=== PATIENT | female | born 1960 | race Caucasian/White ===

== ENCOUNTER 2020-04-20 12:58 | Outpatient (CLI) | payer OTHER | END 2020-04-20 23:59 | disposition home or self-care (01) | LOC: RAD 12:58 | PROVIDERS: ATTEND Surgery | DX: K21.9 Gastro-esophageal reflux disease without esophagitis (principal); R13.14 Dysphagia, pharyngoesophageal phase; K44.9 Diaphragmatic hernia without obstruction or gangrene; E11.9 Type 2 diabetes mellitus without complications | CPT/HCPCS: 74230 ==

== ENCOUNTER 2020-05-17 07:44 | Inpatient (IN) | payer OTHER ==
[2020-05-10 15:45] LABS: BASOPHILS % (AUTO) 0.9 % (0-1); EOSINOPHILS # (AUTO) 0.1 X10'3 (0-0.9); EOSINOPHILS % (AUTO) 2.7 % (0-6); LYMPHOCYTES # (AUTO) 1.6 X10'3 (1.1-4.8); LYMPHOCYTES % (AUTO) 32.9 % (21-51); MEAN CORPUSCULAR HEMOGLOBIN 30.7 PG (27.0-31.0); MEAN CORPUSCULAR HGB CONC 33.5 g/dL (33.0-36.5); MEAN CORPUSCULAR VOLUME 91.5 FL (78-98); MEAN PLATELET VOLUME 9.1 FL (7.4-10.4); MONOCYTES # (AUTO) 0.4 X10'3 (0-0.9); MONOCYTES % (AUTO) 7.8 % (2-12); NEUTROPHILS # (AUTO) 2.7 X10'3 (1.8-7.7); NEUTROPHILS % (AUTO) 55.7 % (42-75); PRE OP HEMATOCRIT 42.3 % (35.0-45.0); PRE OP HEMOGLOBIN 14.2 g/dL (12.0-16.0); PRE OP PLATELET COUNT 222 X10'3 (140-440); RED BLOOD COUNT 4.63 X10'6 (4.20-5.60); RED CELL DISTRIBUTION WIDTH 14.6 % (11.5-14.5)
[2020-05-10 16:11] LABS: ALBUMIN 3.6 G/DL (3.4-5.0); ALBUMIN/GLOBULIN RATIO 0.9 (1.1-1.5); ALKALINE PHOSPHATASE 57 IU/L (46-116); BLOOD UREA NITROGEN 17 MG/DL (7-18); CALCIUM 9.7 MG/DL (8.5-10.1); CHLORIDE 106 MMOL/L (99-107); CREATININE 0.85 MG/DL (0.40-0.90); PRE OP ALT 20 U/L (30-65); PRE OP ANION GAP 6 (8-16); PRE OP AST 14 U/L (10-37); PRE OP BILIRUB, TOTAL 0.3 MG/DL (0.0-1.0); PRE OP GLUCOSE 116 MG/DL (70-104); PRE OP POTASSIUM 4.1 MMOL/L (3.4-5.1); PRE OP SODIUM 141 MMOL/L (135-145); TOTAL CARBON DIOXIDE 29.2 MMOL/L (24-32); TOTAL PROTEIN 7.6 G/DL (6.4-8.2); eGFR 69 ML/MIN
[2020-05-17] VITALS (26 sets, daily range): BP systolic 117–177; BP diastolic 76–98
[~2020-05-17] VITALS: Ht 160 cm; Wt 71.7 kg
[~2020-05-17 07:44] MED LIST: ALPR0.5T9 PO; BUPIVAcaine/PF 2.5 mg/ml (0.25%) 30ml vial ONE; BUSP-28 PO; CETI10TA14 PO; CHOL10002 PO; ESCI10TA61 PO; ESTR0.5T28 PO; GLIP2.5T3 PO; LIDOcaine 1% 30ml preserv. free vial ONE; METF-438 PO; PANT40TA4 PO; PROG200C11 PO; PROM25TA14 PO; ROSU5TAB12 PO; ceFAZolin 2gm in dextrose, iso 50 ML IV ONE; famotidine 20mg tablet PO ONE; meperidine/PF 25mg/ml syringe IV PRN; morphine 2 MG/ML inj. syringe IV PRN; morphine 4 MG/ML inj SYRINge IV PRN; proCHLORperazine 10 MG/2 ml inj IV PRN; ringers solution, lacted 1,000 ML IV SCH
[2020-05-17] MEDS ORDERED: diatr meglu/diatrizoate 30ml oral sol.-(3 dose) bottle ONE (08:00)
[2020-05-17] MEDS ORDERED: midazolam 2 mg/2 ml injection ONE (09:36)
[2020-05-17] MEDS ORDERED: propofol inj 20 ML IV ONE (09:36)
[2020-05-17] MEDS ORDERED: ondansetron/PF 4mg/2ml inj ONE (09:36)
[2020-05-17] MEDS ORDERED: dexamethasone sod phosphate 10mg/ml inj ONE (09:36)
[2020-05-17] MEDS ORDERED: LIDOcaine 2% (20mg/ml) 5ml vial ONE (09:36)
[2020-05-17] MEDS ORDERED: sevoflurane 250ml liquid IH ONE (09:36)
[2020-05-17] MEDS ORDERED: fentaNYL /PF 50mcg/ml 5ml ampule ONE (09:36)
[2020-05-17] MEDS ORDERED: acetaminophen 1,000mg/100ml IV 100 ML IV ONE (11:49)
[2020-05-17] MEDS ORDERED: rocuronium 10mg/ml inj IV ONE (11:52)
[2020-05-17] MEDS ORDERED: CADD PCA waste documentation MC PRN (11:55)
[2020-05-17] MEDS ORDERED: ALPRAZolam 0.5mg tablet PO PRN (11:55)
[2020-05-17] MEDS ORDERED: naloxone 0.4 mg/ml inj IV PRN (11:55)
[2020-05-17] MEDS ORDERED: Potassium Cl inj 20 MEQ in ringers solution, lacted 1,000 ML IV SCH (11:55)
--- NOTE | 2020-05-17 11:58 | NUR ---
Received from OR via , accompanied by Anesthesiologist DR ABREU and report given by Anesthesiolgist. PT IS AWAKE AND VERY ANXIOUS. C/O NAUSEA AND HAVING TO VOID. VITALS STABLE. NO BLEEDING NOTED. WILL MEDICATE FOR PAIN AND NAUSEA.
[2020-05-17] MEDS ORDERED: dextrose ORAL solution 15 GM/59 ML bottle PO PRN ×2 (12:00)
[2020-05-17] MEDS ORDERED: insulin Lispro (HumaLOG) vial - multi-dose SQ SCH (12:00)
[2020-05-17] MEDS ORDERED: glucagon, human recombinant 1mg kit SUBCUT PRN (12:00)
[2020-05-17] MEDS ORDERED: dextrose 50%-water 50ml dispensing syringe IV PRN ×2 (12:00)
[2020-05-17] MEDS ORDERED: MESSAGE TO PHARMACY PO ONE (12:00)
[2020-05-17] MEDS ORDERED: LORazepam 2 mg/ml vial IV ONE (12:05)
[2020-05-17] MEDS: ondansetron/PF 4mg/2ml inj IV PRN ×3 (12:05→18:41)
[2020-05-17] MEDS: HYDROmorphone/NS 1 mg/ml CADD 50 ML IV SCH ×6 (14:42→23:00)
--- NOTE | 2020-05-17 14:45 | NUR ---
Patient in room CADE 358. I have received report from Ron SALDIVARdirector ambulatory and had the opportunity to ask questions and assume patient care.
--- NOTE | 2020-05-17 14:48 | NUR ---
Report called to receiving nurse. Transferred via BED Belongings . Special Issues communicated to receiving nurse. PT IS AWAKE AND STATES PAIN IMPROVING. ALSO NAUSEA IS A LITTLE BETTER. VITALS STABLE. INCISIONS WITHOUT DRAINAGE. TO SURGICAL RM 358B AT THIS TIME.
--- NOTE | 2020-05-17 15:15 | NUR ---
Received patient in Room 358B. Pt sleepy but easily aroused. Patient oriented to room. O2 2L per NC with O2 sats 95%, F/C patent draining clear yellow urine. PIV patent infusing fluids per MD orders. Pt assessment completed. Will continue to monitor.
[2020-05-17] MEDS: Potassium Cl inj 20 MEQ in ringers solution, lacted 1,000 ML IV SCH (16:25)
[2020-05-17] MEDS: ceFAZolin/D5W- 1GM premix 50 ML IV SCH (16:52)
--- NOTE | 2020-05-17 17:39 | NUR ---
1500 Dilaudid CADD settings check done but charted under the 1300 CADD check.
--- NOTE | 2020-05-17 18:27 | NUR ---
Problems reprioritized. Patient report given, questions answered & plan of care reviewed with Tosha Dumont
--- NOTE | 2020-05-17 18:43 | NUR ---
Patient in room CADE 358. I have received report from YARIEL Leal and had the opportunity to ask questions and assume patient care.
--- NOTE | 2020-05-17 19:38 | NUR ---
F/C d/c'd at 1900, tolerated well, and patient already went to the bathroom and urinated.
[2020-05-17] MEDS ORDERED: insulin glargine (Lantus) pen - multi-dose SQ SCH (21:00)
[2020-05-17] MEDS: heparin, porcine 5000 units/ml vial SQ SCH (21:26)
[2020-05-17] MEDS: proMETHazine 25mg rectal suppository RC PRN (22:31)
--- NOTE | 2020-05-17 23:17 | NUR ---
patient was c/o nausea and vomiting frequently and had to call Dr. Luke and ordered phenergan rectally, given to patient, currently feeling nauseous, sitting in bed and monitored frequently.
[2020-05-18] VITALS: BP 161/89
[2020-05-18] MEDS: Potassium Cl inj 20 MEQ in ringers solution, lacted 1,000 ML IV SCH ×2 (00:18→08:21)
[2020-05-18] MEDS: ceFAZolin/D5W- 1GM premix 50 ML IV SCH (00:18)
[2020-05-18] MEDS: HYDROmorphone/NS 1 mg/ml CADD 50 ML IV SCH ×5 (01:00→09:00)
[2020-05-18] MEDS: ondansetron/PF 4mg/2ml inj IV PRN ×3 (02:28→15:23)
--- NOTE | 2020-05-18 03:20 | NUR ---
patient still continue to be nauseous dry heaving, zofran just administered and warm broth given with some relief.
[2020-05-18 04:20] VITALS: BP 139/76
[2020-05-18 05:50] LABS: ALBUMIN 3.4 G/DL (3.4-5.0); ANION GAP 9 (8-16); BLOOD UREA NITROGEN 12 MG/DL (7-18); BUN/CREATININE RATIO 11.5 (6.6-38.0); CALCIUM 8.6 MG/DL (8.5-10.1); CHLORIDE 104 MMOL/L (99-107); CREATININE 1.04 MG/DL (0.40-0.90); GLUCOSE 176 MG/DL (70-104); POTASSIUM 4.5 MMOL/L (3.5-5.1); SODIUM 139 MMOL/L (135-145); TOTAL CARBON DIOXIDE 26.2 MMOL/L (24-32); eGFR 55 ML/MIN
[2020-05-18 06:07] LABS: BASOPHILS % (AUTO) 0.2 % (0-1); EOSINOPHILS % (AUTO) 0 % (0-6); HEMATOCRIT 40.7 % (35.0-45.0); HEMOGLOBIN 13.7 g/dl (12.0-16.0); LYMPHOCYTES # (AUTO) 1.2 X10'3 (1.1-4.8); LYMPHOCYTES % (AUTO) 10.9 % (21-51); MEAN CORPUSCULAR HGB CONC 33.6 g/dL (33.0-36.5); MEAN CORPUSCULAR VOLUME 92.3 FL (78-98); MEAN PLATELET VOLUME 9.4 FL (7.4-10.4); MONOCYTES # (AUTO) 0.7 X10'3 (0-0.9); MONOCYTES % (AUTO) 6.7 % (2-12); NEUTROPHILS # (AUTO) 8.9 X10'3 (1.8-7.7); NEUTROPHILS % (AUTO) 82.2 % (42-75); PLATELET COUNT 222 X10'3 (140-440); RED BLOOD COUNT 4.41 X10'6 (4.20-5.60); RED CELL DISTRIBUTION WIDTH 14.5 % (11.5-14.5); WHITE BLOOD COUNT 10.8 X10'3 (4.5-11.0)
[2020-05-18 06:31] LABS: HEMOGLOBIN A1C 6.5 % (4.5-6.2)
--- NOTE | 2020-05-18 06:50 | NUR ---
Problems reprioritized. Patient report given, questions answered & plan of care reviewed with YARIEL Guillaume.
[2020-05-18 07:42] VITALS: BP 133/89
--- NOTE | 2020-05-18 07:42 | NUR ---
paged radiology for for ETA for esophagram. Yeison with Radiology called back stated around [phone]
[2020-05-18] MEDS ORDERED: cetirizine 10mg tablet PO SCH (08:00)
[2020-05-18] MEDS: heparin, porcine 5000 units/ml vial SQ SCH (08:21)
[2020-05-18] MEDS ORDERED: oxyCODONE/APAP 5-325mg tablet PO PRN (09:35)
[2020-05-18] MEDS: proMETHazine 25mg rectal suppository RC PRN (09:59)
--- NOTE | 2020-05-18 10:14 | NUR ---
Elena with dietary is aware of the consult put in today
[2020-05-18 12:00] VITALS: BP 114/70
[2020-05-18 12:26] VITALS: BP 114/70
--- NOTE | 2020-05-18 13:19 | NUR ---
last 05/17/10 pre op per patient Addendum: 05/18/20 at 1320 by Gabby José STUDENT JEANCARLOS Amended: Links added.
--- NOTE | 2020-05-18 13:54 | NUR ---
Sent down to kitchen for dietary to send up Full Liquid tray per MD orders. Dr Luke aware patient has not ate much on clear tray this morning but wants to try a full liquid tray.
[2020-05-18] MEDS ORDERED: methyl salicylate/menthol cream 57gm TP SCH (13:55)
--- NOTE | 2020-05-18 13:57 | NUR ---
Called and spoke to Mame the plate straightener to make sure they will be coming up to speak with patient re diet. Mame aware patient is going to be Discharged in about 1 hour
--- NOTE | 2020-05-18 15:14 | NUR ---
DM consult: Pt with A1c 6.5%, DM education not warranted at this time. Nutrition consult: Pt s/p Oni fundoplication. Pt seen at bedside provided with written and verbal nutrition therapy education which includes full liquid diet education, soft diet education, and a list of fiber content in foods. Pt verbalized understanding though very emotional during RD interview. Pt attributes emotion to pain and not being able to eat. RD validated feelings and encouraged pt to reach out to RD for any questions/concerns following discharge. RD informed beside RN of pt c/o pain. Pt provided with RD contact information. Pt denies questions at this time. Will remain available. Addendum: 05/18/20 at [address] Amended: Links added.
[2020-05-18] MEDS ORDERED: PER5325T PO (16:25)
--- NOTE | 2020-05-18 17:28 | NUR ---
Patients discharge instructions reviewed with patient and patient verbalized understanding. Patients IV dc'd cannula intact by director of design Holly. Patient was taken to vehicle where was waiting to pick her up by director of design Holly via wheelchair. Patient stated she had all her belongings. Dr Luke's office called in pain medication for patient
== END 2020-05-18 17:00 | disposition home or self-care (01) | DRG 328 ==
LOC: PAS 07:44 → SUR 3N 11:54
PROVIDERS: ADMIT Surgery; ATTEND Surgery
PROC: 0DV44ZZ Restriction of Esophagogastric Junction, Percutaneous Endoscopic Approach (ICD-10-PCS; 2020-05-17)
PROC: 8E0W4CZ Robotic Assisted Procedure of Trunk Region, Percutaneous Endoscopic Approach (ICD-10-PCS; 2020-05-17)
PROC: 0BQT4ZZ Repair Diaphragm, Percutaneous Endoscopic Approach (ICD-10-PCS; principal; 2020-05-17 09:36)
DX: K44.9 Diaphragmatic hernia without obstruction or gangrene (principal); F41.9 Anxiety disorder, unspecified; Z79.84 Long term (current) use of oral hypoglycemic drugs; Z20.828 Contact with and (suspected) exposure to other viral communicable diseases
CPT/HCPCS: Z7506; Z7508; 36415; 71045; 74220; 80048; 80053; 82948; 83036; 85025; 87635; 93005; 94760; A4215; A4618; C1758; G0378; J0131; J0690; J0780; J1100; J1170; J1644; J1815; J2001; J2060; J2175; J2250; J2405; J2704; J3010; J3480; J3490; J7120; Q9963

== ENCOUNTER 2020-06-06 00:03 | Inpatient (IN) | payer OTHER ==
[~2020-06-06] VITALS: Ht 160 cm; Wt 67.0 kg
[~2020-06-06 00:03] MED LIST changes: -BUPIVAcaine/PF 2.5 mg/ml (0.25%) 30ml vial ONE; -LIDOcaine 1% 30ml preserv. free vial ONE; -PANT40TA4 PO; +PANT40TA54 PO; +PER5325T PO; -ceFAZolin 2gm in dextrose, iso 50 ML IV ONE; -famotidine 20mg tablet PO ONE; -meperidine/PF 25mg/ml syringe IV PRN; -morphine 2 MG/ML inj. syringe IV PRN; -morphine 4 MG/ML inj SYRINge IV PRN; -proCHLORperazine 10 MG/2 ml inj IV PRN; -ringers solution, lacted 1,000 ML IV SCH
[2020-06-06] MEDS ORDERED: ondansetron/PF 4mg/2ml inj IV ONE (00:25)
[2020-06-06] MEDS ORDERED: normal saline 1000ML IV soln IVB ONE (00:35)
[2020-06-06] MEDS ORDERED: diazepam inj 5 MG/ML inj. IV ONE (00:35)
[2020-06-06] MEDS ORDERED: pantoprazole 40 MG vial IV ONE (00:35)
[2020-06-06 01:08] LABS: BASOPHILS % (AUTO) 0.5 % (0-1); EOSINOPHILS # (AUTO) 0.1 X10'3 (0-0.9); EOSINOPHILS % (AUTO) 0.9 % (0-6); HEMATOCRIT 45.1 % (35.0-45.0); HEMOGLOBIN 15.2 g/dl (12.0-16.0); LYMPHOCYTES # (AUTO) 1.5 X10'3 (1.1-4.8); LYMPHOCYTES % (AUTO) 17.9 % (21-51); MEAN CORPUSCULAR HEMOGLOBIN 31.2 PG (27.0-31.0); MEAN CORPUSCULAR HGB CONC 33.6 g/dL (33.0-36.5); MEAN CORPUSCULAR VOLUME 92.8 FL (78-98); MONOCYTES # (AUTO) 0.4 X10'3 (0-0.9); MONOCYTES % (AUTO) 4.9 % (2-12); NEUTROPHILS # (AUTO) 6.5 X10'3 (1.8-7.7); NEUTROPHILS % (AUTO) 75.8 % (42-75); PLATELET COUNT 253 X10'3 (140-440); RED BLOOD COUNT 4.86 X10'6 (4.20-5.60); RED CELL DISTRIBUTION WIDTH 14.2 % (11.5-14.5); WHITE BLOOD COUNT 8.6 X10'3 (4.5-11.0)
[2020-06-06] MEDS ORDERED: proCHLORperazine 10 MG/2 ml inj IV ONE (01:20)
[2020-06-06 01:21] LABS: ALANINE AMINOTRANSFERASE 20 U/L (12-78); ALBUMIN 3.8 G/DL (3.4-5.0); ALBUMIN/GLOBULIN RATIO 0.9 (1.1-1.5); ALKALINE PHOSPHATASE 64 IU/L (46-116); ANION GAP 13 (8-16); ASPARTATE AMINO TRANSFERASE 17 U/L (10-37); BILIRUBIN,TOTAL 0.3 MG/DL (0.1-1.0); BLOOD UREA NITROGEN 20 MG/DL (7-18); CHLORIDE 104 MMOL/L (99-107); CREATININE 1.05 MG/DL (0.40-0.90); GLUCOSE 202 MG/DL (70-104); LIPASE 313 U/L (73-393); POTASSIUM 3.8 MMOL/L (3.5-5.1); SODIUM 140 MMOL/L (135-145); TOTAL CARBON DIOXIDE 23.3 MMOL/L (24-32); TOTAL PROTEIN 7.9 G/DL (6.4-8.2); eGFR 54 ML/MIN
[2020-06-06] MEDS ORDERED: iohexol 300mg/ml 100ml inj. ONE (01:51)
[2020-06-06] MEDS: MESSAGE TO NURSING PO NR ×2 (02:24→10:00)
[2020-06-06] MEDS ORDERED: OXYC-145 PO (02:26)
[2020-06-06] MEDS ORDERED: haloperidol lactate 5mg/ml inj IM ONE (02:40)
[2020-06-06] MEDS ORDERED: acetaminophen 325mg tablet PO PRN (05:00)
[2020-06-06] MEDS ORDERED: morphine 2 MG/ML inj. syringe IV PRN ×2 (05:00)
[2020-06-06] MEDS ORDERED: proCHLORperazine 10 MG/2 ml inj IV PRN (05:00)
[2020-06-06] MEDS ORDERED: magnesium hydroxide 30ml (MOM) UD suspension PO PRN (05:00)
[2020-06-06] MEDS ORDERED: mag hydrox/Alum hydrox/simeth 30ml oral suspension PO PRN (05:00)
[2020-06-06] MEDS: normal saline 1000ml 1,000 ML IV SCH ×3 (05:07→15:33)
[2020-06-06] MEDS ORDERED: heparin, porcine 5000 units/ml vial SQ SCH (08:00)
[2020-06-06] MEDS ORDERED: pantoprazole 40 MG vial IV SCH (08:00)
--- NOTE | 2020-06-06 08:00 | NUR ---
Patient admitted from ED. Transferred self to bed. No signs of distress. Full code. On room air. NS running at 100ml/hr. Nausea present, NG was recently pulled out by patient. NPO. Vitals BP 132/74, HR 61, Resp-16, SPO2 94, Temp 98.6. Safety measures in place, bed in low and locked position. Call light and personal items within reach.
--- NOTE | 2020-06-06 09:47 | NUR ---
Paged Dr. Amos: PAGER ID: [phone] MESSAGE: RE: Irene José [id number]. java architect wants to know if we can house convenience patient to surgical? Thank you, Carolyn [phone]
[2020-06-06] MEDS: ondansetron/PF 4mg/2ml inj IV PRN ×2 (09:54→15:30)
--- NOTE | 2020-06-06 10:21 | NUR ---
New order from Dr. Luke, full liquid diet. States if patient can tolerate diet for 2-3 hours, he recommends discharge.
[2020-06-06 11:00] VITALS: BP 147/78
--- NOTE | 2020-06-06 12:56 | NUR ---
Paged Dr. Amos: PAGER ID: [phone] MESSAGE: RE: Irene José [id number]. Per Dr. Luke. No NG tube. States patient can discharge today if able to tolerate full liquid diet. Patient c/o nausea. No vomiting. PRN Compazine/Zofran given. Carolyn [phone]
--- NOTE | 2020-06-06 14:03 | NUR ---
Problems reprioritized. Patient report given, questions answered & plan of care reviewed with Maria G RN. Patient stable at transfer of care.
--- NOTE | 2020-06-06 14:03 | NUR ---
Patient in room PCU 3018. I have received report from Max SALDIVAR and had the opportunity to ask questions and assume patient care.
--- NOTE | 2020-06-06 14:57 | NUR ---
[place] documentation: I have reviewed and agree with all interventions, assessments performed and documented by Max SALDIVAR. [place] Medication Administration: For this medication-pass time frame, all medication were reviewed, dispensed, administered and documented per hospital policy by Max SALDIVAR.
--- NOTE | 2020-06-06 15:19 | NUR ---
PAGER ID: [phone] MESSAGE: Irene José [id number]- Pt DM2, AiC6.5, Accu @[phone]. Could you order DM protocol please. Thank you so much. Maria G Tomas
--- NOTE | 2020-06-06 15:20 | NUR ---
I have reviewed and agree with all interventions, assessments performed and documented by Max SALDIVAR.
[2020-06-06] MEDS ORDERED: insulin Lispro (HumaLOG) vial - multi-dose SQ SCH (16:30)
[2020-06-06] MEDS ORDERED: MESSAGE TO PHARMACY PO ONE (16:30)
[2020-06-06] MEDS ORDERED: dextrose 50%-water 50ml dispensing syringe IV PRN ×2 (16:30)
[2020-06-06] MEDS ORDERED: dextrose ORAL solution 15 GM/59 ML bottle PO PRN ×2 (16:30)
[2020-06-06] MEDS ORDERED: glucagon, human recombinant 1mg kit SUBCUT PRN (16:30)
--- NOTE | 2020-06-06 16:46 | NUR ---
Malnutrition consult, patient presented to ED with intractable nausea and vomiting. She is post op hernia repair 05/17/2020. Passing flatus, having BMs. Has a full liquid diet. Poor PO intake and appetite recently r/t n/v. Weight was 71.67 kg on standing scale 05/17/2020; current weight no scaled at 67 kg. Attempted bedside visit to discuss weight history however patient was resting and declined to respond to questions. Patient did not have any visible fat or muscle wasting, appeared well nourished. No edema present. Malnutrition assessment pending upon patient interview re: weight history and usual body weight. Addendum: 06/06/20 at [address] Amended: Links added.
--- NOTE | 2020-06-06 18:42 | NUR ---
Patient in room PCU 3018. I have received report from JUSTO SALDIVAR and had the opportunity to ask questions and assume patient care. Addendum: 06/06/20 at 1843 by Tamela Yoo RN Amended: Links added.
--- NOTE | 2020-06-06 18:56 | NUR ---
Problems reprioritized. Patient report given, questions answered & plan of care reviewed with linnea SALDIVAR.
--- NOTE | 2020-06-06 19:08 | NUR ---
IV DC'D CATH INTAKE FROM RIGHT ARM PT HAD PULLED OUT LEFT AC IV. AT 1730 SIGNED AMA PAPER AND AT THIS TIME WALKED OUT WITH BELONGINGS AND WITH STAFF AMA. SHE DID STATE SHE HELD HER SOUP DOWN JUST WANTS TO GO HOME AND TAKE A BATH. VITALS STABLE WAS TAKEN JUST BEFORE LEAVING. NOTIFIED.
[2020-06-06] MEDS ORDERED: insulin glargine (Lantus) pen - multi-dose SQ SCH (21:00)
== END 2020-06-06 19:10 | disposition left against medical advice (07) | DRG 392 ==
LOC: ER 00:03 → ED HOLD 05:00 → UNDOADMIN 05:00 → PCU 3S 08:00 → ED HOLD 08:00
PROVIDERS: ADMIT Family Medicine; ATTEND Family Medicine
PROC: 0D9670Z Drainage of Stomach with Drainage Device, Via Natural or Artificial Opening (ICD-10-PCS; principal; 2020-06-06)
PROC: BW211ZZ Computerized Tomography (CT Scan) of Abdomen and Pelvis using Low Osmolar Contrast (ICD-10-PCS; 2020-06-06)
DX: R11.2 Nausea with vomiting, unspecified (principal); E11.9 Type 2 diabetes mellitus without complications; F12.90 Cannabis use, unspecified, uncomplicated; Z53.29 Procedure and treatment not carried out because of patient's decision for other reasons; Z79.84 Long term (current) use of oral hypoglycemic drugs; Z79.899 Other long term (current) drug therapy
CPT/HCPCS: 36415; 74022; 74177; 80053; 82948; 83690; 85025; 87081; 96361; 96372; 96374; 96375; 99285; C9113; G0378; J0780; J1630; J1644; J1815; J2405; J3360; J7030; Q9967